=== PATIENT | male | born 1950 | race Caucasian/White ===

== ENCOUNTER 2023-10-03 10:48 | Outpatient (CLI) | payer OTHER, SELFPAY ==
--- NOTE | 2023-10-03 10:15 | DI.RAD_ITS ---
Exam(s) XR HIP LT AP LAT ONLY EXAM: XR HIP LT AP LAT ONLY INDICATION: S/P ORIF LEFT FEMUR IMN. COMPARISON: CR XR LEFT FEMUR from 08/07/2023 DX X-RAY Hip, 1 Views, Left from 09/03/2023 TECHNIQUE: 2D digital imaging was performed. Two views. FINDINGS: There has been no change in the hardware in the proximal femur. There has been healing at the proxim al femoral fracture. Moderate degenerative changes noted of the left hip. DATA REPOSITORY: RADIATION DOSE DELIVERED:
== END 2023-10-03 10:49 | disposition home or self-care (01) ==
LOC: DIORS 10:48
PROVIDERS: PCP Family Medicine; Visit Provider Student in an Organized Health Care Education/Training Program
DX: Z98.890 Other specified postprocedural states (principal); S72.044D Nondisplaced fracture of base of neck of right femur, subsequent encounter for closed fracture with routine healing; X58.XXXD Exposure to other specified factors, subsequent encounter
CPT/HCPCS: 73502

== ENCOUNTER 2023-12-01 11:37 | Outpatient (CLI) | payer OTHER, SELFPAY ==
--- NOTE | 2023-12-01 11:02 | DI.RAD_ITS ---
Exam(s) XR KNEE LT 3V AP,LAT,TAVIA EXAM: XR KNEE LT 3V AP,LAT,TAVIA CLINICAL HISTORY: L knee pain. TECHNIQUE: 2D digital imaging was performed of the left knee. Three images were obtained. AP, late ral and PA tunnel views were obtained. COMPARISON: CR XR LEFT FEMUR from 08/07/2023 FINDINGS: BONES: No acute fracture is present. No bony destructive lesion is seen. JOINTS: There is marked narrowing of the medial femoral tibial joint. There osteophytes in the bloom lofemoral joint and the medial femoral tibial joint. Enthesophytes are seen at the anterior patella. There density seen posteriorly in the knee which may represent loose bodies. There is a small join t effusion. SOFT TISSUE: Normal. IMPRESSION: Osteoarthritis of the left knee. DATA REPOSITORY: RADIATION DOSE DELIVERED:
--- NOTE | 2023-12-01 11:02 | DI.RAD_ITS ---
Exam(s) XR HIP LT AP LAT ONLY EXAM: XR HIP LT AP LAT ONLY CLINICAL HISTORY: ORIF L hip. TECHNIQUE: 2D digital imaging was performed. Two images were obtained. AP and lateral views were ob tained. COMPARISON: CR XR PELVIS from 08/07/2023 CR XR HIP LT AP LAT ONLY from 10/03/2023 FINDINGS: BONES: There are stable post operative changes present. No new fracture or dislocation. There has be en no change in alignment of the proximal left humeral fracture which shows continued healing. JOINTS: The joint spaces are well maintained. There are degenerative changes seen in the left hip. SOFT TISSUE: Normal. IMPRESSION: Stable postoperative changes. DATA REPOSITORY: RADIATION DOSE DELIVERED:
== END 2023-12-01 11:38 | disposition home or self-care (01) ==
LOC: DIORS 11:37
PROVIDERS: PCP Family Medicine; Visit Provider Physician Assistant
DX: M17.12 Unilateral primary osteoarthritis, left knee
CPT/HCPCS: 73562; 73502

== ENCOUNTER 2025-03-20 22:15 | Emergency (ER) | payer MEDICARE, SELFPAY ==
[2025-03-20] VITALS (17 sets, daily range): BP systolic 136–147; BP diastolic 62–75; PULSE 74–128; RESP 9–20; TEMP 37; O2SAT 91–98
--- NOTE | 2025-03-20 21:45 | RT.EKG_ITS ---
APPROVED REPORT Exam: Resting ECG Reason for Exam: Stemi Patient Location: E HR:80 bpm ECG Measurements Heart Rate 80 AXIS DE 195 P 0 QRSd 97 QRS 43 QT 395 T 64 QTc 457 Conclusion Sinus rhythm...normal P axis, V-rate 60- 99 Probable anteroseptal infarct, recent...Q, ST>0.15mV, T neg, V1-V2 Physician: Elevation in V1/V2, no depressions, concern for STEMI
--- NOTE | 2025-03-20 22:15 | DI.RAD_ITS ---
Exam(s) XR PORTABLE CHEST AP EXAM: XR PORTABLE CHEST AP CLINICAL HISTORY: chest pain TECHNIQUE: 2D digital imaging was performed of the chest. One image was obtained. An AP view was ob tained. COMPARISON: No exams were available for comparison FINDINGS: There is overlying monitoring equipment present. MEDIASTINUM: Normal. HEART: Normal. PULMONARY VASCULATURE: Normal. LUNGS: Clear. PLEURAL SPACE: No pleural effusion or pneumothorax. BONE:Within normal limits for the patient's age. OTHER FINDINGS:Normal. IMPRESSION: No acute pulmonary findings. DATA REPOSITORY: RADIATION DOSE DELIVERED:
[2025-03-20 22:29] LABS: Abs Immature Grans 0.04 10^3/uL (0.0-0.06); Absolute Basophil Count 0.05 10^3/uL (0.0-0.2); Absolute Eosinophil Count 0.28 10^3/uL (0.0-0.7); Absolute Lymphocyte Count 1.76 10^3/uL (1.2-3.4); Absolute Monocyte Count 0.84 10^3/uL (0.1-0.8); Absolute Neutrophil Count 7.05 10^3/uL (1.2-6.7); Basophils % 0.5 %; Eosinophils % 2.8 %; HCT 39.6 % (40.0-50.0); HGB 12.7 g/dL (13.5-17.5); Immature Grans % 0.4 %; Lymphocytes % 17.6 %; MCH 28.4 pg (27.0-33.0); MCHC 32.1 % (32.0-36.0); MCV 89 fL (80-95); MPV 9.4 fL (8.0-11.0); Monocytes % 8.4 %; Neutrophils % 70.3 %; Platelet Count 283 10^3/uL (130-400); RBC 4.47 10^6/uL (4.36-5.78); RDW 13.9 % (11.8-14.1); WBC 10.02 10^3/uL (4.4-10.8)
--- NOTE | 2025-03-20 22:30 | DI.CT_ITS ---
Exam(s) CT THORAX CTA EXAM: CT THORAX CTA CLINICAL HISTORY: stemi, eval for dissection and vent wall anyurism. TECHNIQUE: Imaging Protocol: Axial CT angiography was performed with multi-slice acquisition and mu lti-planar and/or 3D reconstructions. Lung Computer Aided Detection (CAD) was utilized. CONTRAST MATERIAL: Intravenous: Omnipaque 350 contrast volume:80 mL COMPARISON: No exams were available for comparison FINDINGS: Tracheobronchial tree: Patent where visualized. No bronchiectasis. Pulmonary parenchyma: No consolidation or dominant measurable mass. No architectural distortion. Mild atelectatic changes are seen in the lung bases. Pulmonary Arteries: No evidence of filling defect to suggest pulmonary emboli. Mediastinum and Seble: No dominant adenopathy or fluid collection. The esophagus is unremarkable. Visualized thyroid gland: Unremarkable. Pleura: No effusion or pneumothorax. Heart: The heart is not dilated. Three vessel coronary artery calcification is present. No pericardi al effusion. Aorta: Thoracic aorta non-dilated. No evidence of dissection. Upper abdomen: Unremarkable. Soft tissues: There is bilateral gynecomastia. Bones: Within normal limits for the patient's age. IMPRESSION: 1. No evidence of pulmonary embolism, thoracic aortic dissection or aneurysm. 2. No acute pulmonary process. 3. The preliminary [facility] report was reviewed. RADIATION DOSE DELIVERED: 244.92mGy.cm Total DLP 244.92mGy.cm Total DLP DATA REPOSITORY: All CT scans at this facility are submitted to the National Radiology Data Registry (NRDR) Dose Index Registry (DIR) with the [employer] (ACR). RADIATION OPTIMIZATION: All CT scans at this facility use at least one of these dose optimization te chniques: automated exposure control; mA and/or kV adjustment per patient size (includes targeted exa ms where dose is matched to clinical indication); or iterative reconstruction.
[2025-03-20 22:45] LABS: PTT Activated 26.3 sec (20.6-30.2); Prothrombin Time 9.9 sec (9.1-11.1)
--- NOTE | 2025-03-20 22:50 | W.ED.GENAD ---
Discharge Plan Disposition Patient Disposition: Transfer-Acute Inpatient Care Specific Acute Inpt Facility: [facility] Condition: Critical Discharge Details Clinical Impression: Chest pain, ST elevation KS (STEMI) Primary Care Provider: Alex Warner ED Provider: Sam Leo Home Meds and New Rx's Prescriptions: No Action (DME) crutch/walker spikes See Rx Instructions .Route .MEDSUPPLY Qty: 1 0RF Rx Instructions: As directed HPI General Date/Time Provider Initiated Documentation: 03/20/25 22:38. HPI Narrative: 74-year-old male with a past medical history of osteoarthritis in his knee, previous distant hip fracture, presents today for evaluation of chest pain. Patient states that 2 days ago he developed mild chest achiness, which was intermittent and continued for around 48 hours until this evening around 5 to 6 PM where he had a sudden onset of severe chest heaviness and achiness that occurred while he was closing a window. He denies any falls or trauma. Pain became severe and was rated 10 out of 10. EMS was contacted about 2 to 3 hours later, when they arrived EKG was performed and it showed a combination of bigeminy, and ST elevation. He was given 325 aspirin, 3 nitroglycerin, supplemental oxygen for support, 500 cc normal saline bolus, and 50 of fentanyl. This brought his pain down from a 10 out of 10 to a 3 out of 10. He was brought to the ER for further assessment. He denies any previous cardiac history. He states in the past he was hypertensive but after he got his hip fixed the hypertension went away. He denies history of high cholesterol or diabetes. He denies smoking history. He believes he may have a family history of cardiac disease. No other complaints at this time. He denies recent exertional symptoms over the last week. No other complaints at this time. Related Data Home Medications ?Medication ?Instructions ?Recorded ?Confirmed crutch/walker spikes #1 ea 10/03/23 10/25/24 Previous Rx's ?Medication ?Instructions ?Recorded crutch/walker spikes #1 ea 10/03/23 Allergies Allergy/AdvReac Type Severity Reaction Status Date / Time No Known Allergies Allergy Verified 10/25/24 10:54 Exam Narrative Exam Narrative: 1.Const: Well-nourished, Well-developed, appearing stated age 2.Eyes: PERRL, no conjunctival injection, and symmetrical lids. 3.ENT: Atraumatic external nose and ears. Moist MM. Neck: Symmetric, trachea midline, No thyromegaly. 4.CVS: +S1/S2, Peripheral pulses 2+ and equal in all extremities. Brisk capillary refill in all extremities. Radial pulse +2 bilaterally. 5.RESP: Unlabored respiratory effort. Clear to auscultation bilaterally. No wheezes rales or rhonchi 6.GI: Soft, Nontender/Nondistended, No hepatosplenomegaly. No guarding or rebound. 7.MSK: Normocephalic/Atraumatic, Extremities w/o deformity or ttp No cyanosis or clubbing, Normal movement of all extremities 8.Skin: Warm, Dry. No rashes or lesions. 9.Neuro: correctional medicine physician II-XII grossly intact. Sensation grossly intact, no focal neurologic deficits. 10.Psych: (AAO) x3. Appropriate mood and affect Course Vital Signs Vital signs: Vital Signs Pulse Oximetry 96 03/20/25 22:25 Pulse Oximetry 96 03/20/25 22:25 Oxygen Delivery Method Nasal Cannula 03/20/25 22:25 Oxygen Flow Rate 4 03/20/25 22:25 Lab/Test Results Lab/Test Results: Laboratory Tests Range/Units 03/20/25 22:20 WBC (4.4-10.8) 10^3/uL 10.02 RBC (4.36-5.78) 10^6/uL 4.47 Hgb (13.5-17.5) g/dL 12.7 L Hct (40.0-50.0) % 39.6 L MCV (80-95) fL 89 MCH (27.0-33.0) pg 28.4 MCHC (32.0-36.0) % 32.1 RDW (11.8-14.1) % 13.9 Plt Count (130-400) 10^3/uL 283 MPV (8.0-11.0) fL 9.4 Immature Gran % % 0.4 Neutrophils % % 70.3 Lymphocytes % % 17.6 Monocytes % % 8.4 Eosinophils % % 2.8 Basophils % % 0.5 Nucleated RBC % (0.0-0.3) % 0.0 Absolute Neutrophils (1.2-6.7) 10^3/uL 7.05 H Absolute Lymphocytes (1.2-3.4) 10^3/uL 1.76 Absolute Monocytes (0.1-0.8) 10^3/uL 0.84 H Absolute Eosinophils (0.0-0.7) 10^3/uL 0.28 Absolute Basophils (0.0-0.2) 10^3/uL 0.05 PT (9.1-11.1) sec 9.9 INR (0.9-1.1) 1.0 APTT (20.6-30.2) sec 26.3 Medical Decision Making 74-year-old male with a past medical history of osteoarthritis in his knee, previous distant hip fracture, presents today for evaluation of chest pain. Patient states that 2 days ago he developed mild chest achiness, which was intermittent and continued for around 48 hours until this evening around 5 to 6 PM where he had a sudden onset of severe chest heaviness and achiness that occurred while he was closing a window. He denies any falls or trauma. Pain became severe and was rated 10 out of 10. EMS was contacted about 2 to 3 hours later, when they arrived EKG was performed and it showed a combination of bigeminy, and ST elevation. He was given 325 aspirin, 3 nitroglycerin, supplemental oxygen for support, 500 cc normal saline bolus, and 50 of fentanyl. This brought his pain down from a 10 out of 10 to a 3 out of 10. He was brought to the ER for further assessment. He denies any previous cardiac history. He states in the past he was hypertensive but after he got his hip fixed the hypertension went away. He denies history of high cholesterol or diabetes. He denies smoking history. He believes he may have a family history of cardiac disease. No other complaints at this time. He denies recent exertional symptoms over the last week. No other complaints at this time. Exam demonstrates a stable male, blood pressure is in the 130s systolic, heart rate in the 70s, O2 94% on 2 L supplemental. Afebrile. Radial pulses +2 bilaterally. Lungs are clear. Bedside echo shows an atypical component near the apex of the heart in the left ventricle. Uncertain if this represents an aneurysm or atypical vascular/flow component. No evidence of tamponade, or large pericardial effusion. EKG shows evidence of ST elevation in V1 and V2, but no significant reciprocal depressions however with such an anterior STEMI I would suspect that the depressions would be found on posterior EKG. With the patient's chest pain, age and risk factors I do feel that symptoms represent STEMI. However due to the atypical echo finding, the 48-hour component of his symptomatology, and the slightly atypical component of the EKG we we will consult with cardiology for discussion of TNK administration. 10:[address] Delatorre of [facility] cardiology. He to feels that the EKG is slightly atypical in nature in conjunction with the history. He would like to discuss the case and EKG findings with his web machine tender. In the meantime we will heparinize, started on nitro, and continue to monitor closely. We will get CTA for further assessment of cardiac ventricles. 11:[address] [facility] cardiology, at this time with after discussing with the web machine tender, they have decided to hold off on TNK for the meantime. They do not feel that his EKG meets STEMI criteria and for TNK administration. We will give 600 of Plavix. Patient will be transferred to [facility] via [facility] for definitive cath intervention. Patient remains hemodynamically stable at this time. Pending CT results. I have extensively reviewed the treatment plan with the patient. I have addressed all patient concerns at this time. I have also discussed the plan with the admitting physician and they agree with the current assessment and plan and have agreed to assume responsibility for the patient. All parties demonstrate verbal understanding and agreement with our assessment and plan at this time. The documentation in this chart was dictated using [employer] dictation software. Please excuse any dictation errors. 11:30 PM Daughter and has arrived, as well as dart has arrived. Patient will be taken for definitive management. At time of transfer the patient was reassessed and continued to demonstrate No signs of acute respiratory distress requiring intubation, hemodynamic instability requiring pressor support, or rapidly declining mental status. FINDINGS: Lungs: Unremarkable. No consolidation. Pleural spaces: Unremarkable. No pleural effusion. No pneumothorax. Heart/Mediastinum: Unremarkable. No cardiomegaly. Bones/joints: Unremarkable. IMPRESSION: No acute findings. Thank you for allowing us to participate in the care of your patient. Dictated and Authenticated by: Christiano Chapa MD 03/20/2025 11:40 PM Eastern Time ([place] & [place]) FINDINGS: Pulmonary arteries: No embolus is noted within the main pulmonary artery, right or left pulmonary artery, or lobar branches. Segmental and subsegmental branches cannot be assessed secondary to contrast timing focused on the aorta. Aorta: See Pulmonary arteries finding. Lungs: Unremarkable. No consolidation. No masses. Pleural spaces: Unremarkable. No pneumothorax. No pleural effusion. Heart: Unremarkable. No cardiomegaly. No pericardial effusion. Lymph nodes: Unremarkable. No enlarged lymph nodes. Bones/joints: Unremarkable. No acute fracture. Soft tissues: Unremarkable. IMPRESSION: 1. No evidence of thoracic aortic aneurysm or dissection. 2. No embolus is noted within the main pulmonary artery, right or left pulmonary artery, or lobar branches. Segmental and subsegmental branches cannot be assessed secondary to technical factors. Thank you for allowing us to participate in the care of your patient. Dictated and Authenticated by: Christiano Chapa MD 03/20/2025 11:59 PM Eastern Time ([place] & [place]) Quality:SDOH Health Related Social Needs: No Data to Display Critical Care Time Critical Care Time Critical Care Time: Yes Total Critical Care Time: 45 Attestation: Upon my evaluation, this patient had a high probability of imminent or life-threatening deterioration, which required my direct attention, intervention, and personal management. I have personally provided 45 minutes of critical care time exclusive of time spent on separately billable procedures. Time includes review of laboratory data, radiology results, discussion with consultants, and monitoring for potential decompensation. Interventions were performed as documented. PFSH All Active Problems ST elevation KS (STEMI) (Acute) Chest pain (Acute) Trochanteric bursitis of left hip (Acute) Osteoarthritis of left knee (Acute) Steroid injection: 12/01/2023 Hip fracture, left (Acute 08/07/23) S/P ORIF IMN: 08/09/2023 in [facility] Social History Smoking/Tobacco Use Status: Never Smoking risk assessment performed?: Yes Alcohol Intake: former Substance use type: does not use Housing: house Current gender identity: male Do you feel safe at home: Yes Do you feel safe in your relationship?: Yes POCUS Exam (ED) Limited Cardiac Exam DATE OF EXAM: 03/20/25 TIME OF EXAM: 23:04 PROVIDER THAT PERFORMED THE STUDY: Sam Leo IS THIS A REPEAT EXAM DURING THIS ENCOUNTER: no REASON FOR EXAM: Chest pain VISUALIZED STRUCTURES: Left atrium, Left ventricle, Right ventricle, Aortic valve and Interventricular septum VIEW OBTAINED: Parasternal long-axis and Parasternal short-axis PERTINENT FINDINGS/IMPRESSION: Other (Atypical finding near the apex of the heart, concern for flow or ventricular wall abnormality.); No pericardial effusion Exam complete
[2025-03-20] MEDS: Omnipaque 350 MG/ML 100 ML BTL IJ (22:53)
[2025-03-20] MEDS: Normal Saline - Diluent 50 ML VIAL IJ (22:54)
[2025-03-20 23:01] LABS: ALT 29 U/L (16-63); AST 38 U/L (15-37); Albumin 2.8 g/dL (3.4-5.0); Alkaline Phosphatase 82 U/L (46-116); Anion Gap 9.7 mmol/L (3-11); BUN 18 mg/dL (7-18); Bilirubin, Total 0.3 mg/dL (0.2-1.0); CO2 25.3 mmol/L (21.0-32.0); CREATININE 1.2 mg/dL (0.70-1.30); Calcium 8.5 mg/dL (8.5-10.1); Chloride 103 mmol/L (98-107); Estimated GFR 62.67 (mL/min/1.73m2); Glucose 235 mg/dL (74-106); Lipase 43 U/L (<78); NT-proBNP 49 pg/mL (<300); Potassium 3.9 mmol/L (3.5-5.1); Sodium 138 mmol/L (136-145); TSH (W/Ref FT4) 9.63 uIU/mL (0.36-3.74); Total Protein 7.9 g/dL (6.4-8.2)
[2025-03-20 23:03] LABS: Troponin I 616 ng/L (<or=76)
[2025-03-20] MEDS: Heparin in 0.45% NaCl 25,000 UNIT/250 ML BAG 10 UNIT IVINF (23:08)
[2025-03-20] MEDS: Calcium Gluconate 4.65 MEQ/10 ML VIAL 4.65 MG IVP (23:09)
[2025-03-20] MEDS: Clopidogrel 300 MG TAB 600 MG PO (23:12)
[2025-03-20 23:20] LABS: FREE T4 0.85 ng/dL (0.76-1.46)
[2025-03-20] MEDS: nitroGLYcerin in D5W 50 MG/250 ML BTL 6 MG IV (23:21)
--- NOTE | 2025-03-20 23:40 | DI.[facility]_ITS ---
PROCEDURE INFORMATION: Exam: XR Chest Exam date and time: 03/20/2025 10:34 PM Age: 74 years old Clinical indication: Other: Unspecified; Chest pain - PT came in to ED as stemi TECHNIQUE: Imaging protocol: Radiologic exam of the chest. Views: 1 view. COMPARISON: CT THORAX CTA 03/20/2025 10:33 PM FINDINGS: Lungs: Unremarkable. No consolidation. Pleural spaces: Unremarkable. No pleural effusion. No pneumothorax. Heart/Mediastinum: Unremarkable. No cardiomegaly. Bones/joints: Unremarkable. IMPRESSION: No acute findings. Dictated and Authenticated by: Christiano Chapa MD. Orderin Felipa Vargas MD
--- NOTE | 2025-03-20 23:59 | DI.[facility]AD_ITS ---
PROCEDURE INFORMATION: Exam: CTA Chest With Contrast Exam date and time: 03/20/2025 10:33 PM Age: 74 years old Clinical indication: Other: Chest pain; Stemi, eval for dissection and vent wall anyurism TECHNIQUE: Imaging protocol: Computed tomographic angiography of the chest with contrast. Exam focused on the arteries. 3D rendering (Not supervised by radiologist): MIP and/or 3D reconstructed images were created by the technologist. Radiation optimization: All CT scans at this facility use at least one of these dose optimization techniques: automated exposure control; mA and/or kV adjustment per patient size (includes targeted exams where dose is matched to clinical indication); or iterative reconstruction. Contrast material: OMNIPAQUE 350; Contrast volume: 80 ml; Contrast route: INTRAVENOUS (IV); COMPARISON: CR XR PORTABLE CHEST AP 03/20/2025 10:34 PM FINDINGS: Pulmonary arteries: No embolus is noted within the main pulmonary artery, right or left pulmonary artery, or lobar branches. Segmental and subsegmental branches cannot be assessed secondary to contrast timing focused on the aorta. Aorta: See Pulmonary arteries finding. Lungs: Unremarkable. No consolidation. No masses. Pleural spaces: Unremarkable. No pneumothorax. No pleural effusion. Heart: Unremarkable. No cardiomegaly. No pericardial effusion. Lymph nodes: Unremarkable. No enlarged lymph nodes. Bones/joints: Unremarkable. No acute fracture. Soft tissues: Unremarkable. IMPRESSION: 1. No evidence of thoracic aortic aneurysm or dissection. 2. No embolus is noted within the main pulmonary artery, right or left pulmonary artery, or lobar branches. Segmental and subsegmental branches cannot be assessed secondary to technical factors. Dictated and Authenticated by: Christiano Chapa MD. Orderin Felipa Vargas MD
[2025-03-21 00:06] VITALS: RESP 16
== END 2025-03-20 23:43 | disposition short-term general hospital (02) ==
PROVIDERS: Emergency Provider Student in an Organized Health Care Education/Training Program; PCP Family Medicine
DX: I21.29 ST elevation (STEMI) myocardial infarction involving other sites; R07.9 Chest pain, unspecified
CPT/HCPCS: 71275; 80053; 83690; 93005; 93308; 96365; 96367; 96375; 99291; 71045; 83880; 84439; 84443; 84484; 85025; 85610; 85730; 93010; J0612; J1644; J2305; J3490

== ENCOUNTER 2025-04-19 07:54 | Outpatient (CLI) | payer MEDICARE, SELFPAY ==
--- NOTE | 2025-04-19 07:45 | RT.EKG_ITS ---
APPROVED REPORT Exam: Resting ECG Reason for Exam: CT Patient Location: O HR:94 bpm ECG Measurements Heart Rate 94 AXIS CA 235 P 11 QRSd 88 QRS 36 QT 350 T 93 QTc 438 Conclusion Sinus rhythm...normal P axis, V-rate 50- 99 Prolonged CA interval...CA >215, V-rate 91-120 Probable left atrial enlargement...P >50mS, <-0.10mV V1 Anteroseptal infarct, age indeterminate...Q >35mS, T neg, V1-V2 Baseline wander in lead(s) V3,V4,V5
== END 2025-04-19 07:55 | disposition home or self-care (01) ==
LOC: DI.CARD 07:54
PROVIDERS: PCP Family Medicine; Visit Provider Internal Medicine Cardiovascular Disease
DX: I21.3 ST elevation (STEMI) myocardial infarction of unspecified site (principal); I51.7 Cardiomegaly
CPT/HCPCS: 93010

== ENCOUNTER → 2025-04-19 13:34 | Outpatient (BNVA) | payer MEDICARE, SELFPAY | PROVIDERS: PCP Family Medicine; Referring Provider Family Medicine; Visit Provider Internal Medicine Cardiovascular Disease | DX: I21.4 Non-ST elevation (NSTEMI) myocardial infarction (principal); I25.10 Atherosclerotic heart disease of native coronary artery without angina pectoris | CPT/HCPCS: 99214; 93005 ==

== ENCOUNTER 2025-05-18 10:00 | Outpatient (RCR) | payer MEDICARE, SELFPAY ==
--- NOTE | 2025-05-02 11:00 | RT.EKG_ITS ---
APPROVED REPORT Exam: Resting ECG Reason for Exam: Baseline Patient Location: O HR:84 bpm ECG Measurements Heart Rate 84 AXIS WI 262 P 33 QRSd 89 QRS 43 QT 347 T 72 QTc 411 Conclusion Sinus rhythm...normal P axis, V-rate 50- 99 Prolonged WI interval...WI >220, V-rate 50- 90 Anteroseptal infarct, age indeterminate...Q >35mS, T neg, V1-V2
== END 2025-05-19 23:59 | disposition home or self-care (01) ==
LOC: CR 10:00
PROVIDERS: PCP Family Medicine; Visit Provider Internal Medicine Cardiovascular Disease
DX: I21.4 Non-ST elevation (NSTEMI) myocardial infarction (principal); I21.02 ST elevation (STEMI) myocardial infarction involving left anterior descending coronary artery; Z51.89 Encounter for other specified aftercare
CPT/HCPCS: S9472

== ENCOUNTER 2025-06-15 10:00 | Outpatient (RCR) | payer MEDICARE, SELFPAY | END 2025-06-19 23:59 | disposition home or self-care (01) | LOC: CR 10:00 | PROVIDERS: PCP Family Medicine; Visit Provider Internal Medicine Cardiovascular Disease | DX: I21.4 Non-ST elevation (NSTEMI) myocardial infarction (principal); I10 Essential (primary) hypertension; E11.9 Type 2 diabetes mellitus without complications | CPT/HCPCS: S9472 ==

== ENCOUNTER 2025-06-15 11:05 | Emergency (ER) | payer MEDICARE, SELFPAY ==
[2025-06-15] VITALS (47 sets, daily range): BP systolic 95–153; BP diastolic 44–69; PULSE 64–87; RESP 12–25; TEMP 36.6–36.7; O2SAT 93–100
--- NOTE | 2025-06-15 11:00 | RT.EKG_ITS ---
APPROVED REPORT Exam: Resting ECG Reason for Exam: Cardiac Arrest Patient Location: E HR:78 bpm ECG Measurements Heart Rate 78 AXIS TX 236 P 26 QRSd 85 QRS 48 QT 384 T 55 QTc 437 Conclusion Sinus rhythm...normal P axis, V-rate 60- 99 Prolonged TX interval...TX >220, V-rate 50- 90 Low voltage, precordial leads...precordial leads <1.0mV Consider anteroseptal infarct...Q >30mS, dimin R, V1-V2 Sinus rhythm with first degree heart block. Old anteroseptal infarct. When compared to 05/02/25 no significant changes. WD
--- NOTE | 2025-06-15 11:00 | DI.RAD_ITS ---
Exam(s) XR PORTABLE CHEST AP EXAM: XR PORTABLE CHEST AP CLINICAL HISTORY: s/p CPR TECHNIQUE: 2D digital imaging was performed of the chest. One image was obtained. An AP view was obtained. COMPARISON: CR,XR XR PORTABLE CHEST AP from 03/20/2025 FINDINGS: The exam is limited by overlying monitoring equipment. MEDIASTINUM: Normal. HEART: Normal. PULMONARY VASCULATURE: Normal. LUNGS: Clear. PLEURAL SPACE: No pleural effusion or pneumothorax. BONE:Within normal limits for the patient's age. OTHER FINDINGS:Normal. IMPRESSION: No acute pulmonary findings. DATA REPOSITORY: RADIATION DOSE DELIVERED:
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
[2025-06-15 11:22] LABS: HCT 40.5 % (40.0-50.0); HGB 13.1 g/dL (13.5-17.5); MCH 28.9 pg (27.0-33.0); MCHC 32.3 % (32.0-36.0); MCV 89 fL (80-95); MPV 9.8 fL (8.0-11.0); Platelet Count 294 10^3/uL (130-400); RBC 4.53 10^6/uL (4.36-5.78); RDW 13.7 % (11.8-14.1); RDW-SD 45.1 fL; WBC 11.24 10^3/uL (4.4-10.8)
[2025-06-15 11:38] LABS: INR 1.0 (0.9-1.1); PTT Activated 24.5 sec (20.6-30.2); Prothrombin Time 10.1 sec (9.1-11.1)
[2025-06-15 12:29] LABS: Troponin I 10 ng/L (<or=76)
[2025-06-15 14:52] LABS: Troponin I 11 ng/L (<or=76)
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
== END 2025-06-15 15:40 | disposition left against medical advice (07) ==
PROVIDERS: Emergency Provider Emergency Medicine Emergency Medical Services; PCP Family Medicine
DX: R55 Syncope and collapse (principal); Z53.20 Procedure and treatment not carried out because of patient's decision for unspecified reasons; Z86.79 Personal history of other diseases of the circulatory system
CPT/HCPCS: 36415; 36416; 82962; 99291; 85027; 93005; 71045; 84484; 85610; 85730; 93010

== ENCOUNTER 2025-06-23 10:29 | Outpatient (CLI) | payer MEDICARE, SELFPAY | END 2025-06-23 10:30 | disposition home or self-care (01) | PROVIDERS: PCP Family Medicine; Visit Provider Family Medicine | DX: I21.4 Non-ST elevation (NSTEMI) myocardial infarction (principal) | CPT/HCPCS: 93246 ==

== ENCOUNTER 2025-06-27 09:02 | Outpatient (CLI) | payer MEDICARE, SELFPAY ==
--- NOTE | 2025-06-27 06:45 | DI.US_ITS ---
APPROVED REPORT EXAM: Comprehensive 2D, Doppler, and color-flow Echocardiogram Patient Location: Out-Patient [employer] Operator: Favian Ansari RDCS (AE) Indications: Recheck LV function, CAD Other Information Study Quality: Adequate. Technically limited study due to body habitus. Conclusion Normal left ventricular wall thickness and chamber size. Ejection fraction is 55%. Wall motion appears normal Normal right ventricular size and function Both atria are normal in size There is no structural or hemodynamically significant valvular disease Wall motion Left Ventricle The left ventricle is normal size. The left ventricular systolic function is normal. The left ventricular ejection fraction is within the normal range. There is normal left ventricular wall thickness. No segmental wall motion abnormalities There is no ventricular septal defect visualized. LVEF is 55%. Right Ventricle The right ventricle is normal size. The right ventricular systolic function is normal. Atria The left atrium size is normal. Right atrium is mildly dilated. The interatrial septum is intact with no evidence for an atrial septal defect. Aortic Valve The aortic valve is normal in structure. Aortic valve is trileaflet. There is no aortic valvular stenosis. No aortic regurgitation is present. Mitral Valve The mitral valve is normal in structure. No evidence of mitral valve stenosis. Trace mitral regurgitation. Tricuspid Valve The tricuspid valve is normal in structure. There is no tricuspid valve stenosis. Trace tricuspid regurgitation. Pulmonic Valve The pulmonary valve is normal in structure. There is no pulmonic valvular stenosis. There is no pulmonic valvular regurgitation. Great Vessels The ascending aorta is normal in size. Aortic arch is normal in caliber. IVC is normal in size and collapses >50% with inspiration. Pericardium There is no pericardial effusion. 2D Dimensions IVSD d PLAX 1.05 cm M: 0.6-1.2 Ao Root d 2.95 cm M: 3.1 - 3.7 LVPW d PLAX 1.08 cm M: 0.6 - 1.2 Ao Asc Diam d 3.37 cm M: 2.6 - 3.4 LVID d PLAX 4.41 cm M: 4.2 - 5.8 LVDs 3.17 cm M: 2.5 - 4.0 LV EF Teichholz 54.3 % FS 27.96 % LV EDV (Teich) 88.0 mL LV ESV (Teich) 40.2 mL Stroke Vol Index (Teich) 19.28 M-Mode TAPSE 1.75 cm (M/F) >1.7 Auto EF LV EDV A4C 87.4 mL LV EDV A2C 104.3 mL LV EDV BP 95.5 mL LV ESV A4C 42.7 mL LV ESV A2C 48.5 mL LV ESV BP 45.6 mL LVEF(%) A4C 51.1 % LVEF(%) A2C 53.5 % LVEF(%) BP 52.3 % LV SV A4C 44.7 ml LV SV A2C 55.8 ml LV SV BP 49.9 ml LV CO A4C 3.4 L/min LV CO A2C 4.2 L/min LV CO BP 3.8 L/min HR A4C 75.64 BPM HR A2C 75.79 BPM LV EDV Index (BP) LA Volume LA Length A4C 4.4 cm LA Length A2C 5.2 cm LA Area A4C s 14.66 cm2 LA Area A2C s 12.89 cm2 LA Vol A4C A-L 41.26 mL LA Vol A2C A-L 27.22 mL LA Vol Biplane A-L 36.3 mL LA Vol/BSA A4C A-L LA Vol/BSA A2C A-L LA Vol/BSA BP A-L 14.6 mL/m2 LA Vol A4C MOD 37.5 mL LA Vol A2C MOD 25.1 mL LA Vol BP MOD 32.4 mL RA Volume RA Area A4C 11.4 cm2 RA ESV A4C (A-L) 26.6mL RA Vol/BSA A4C A-L RA Length A4C 4.1 cm RA ESV A4C (MOD) 25.2mL LV Diastology MV E' medial 0.077 (>0.07 m/s) MV E Vmax 0.47 (0.4-1.3 m/s) MV E/E' MED 6.11 (<14) MV A Vmax 0.70 (0.4-1.3 m/s) MV E' lateral 0.070 (>0.1 m/s) E/A Ratio 0.7 MV E/E' LAT 6.68 (<14) MV E' Average 0.073 m/s MV E/E'(average) 6.38 Aortic Valve AoV Vmax 1.09 m/s LVOT Vmax 0.84 m/s AoV Peak Grad 4.8 mmHg LVOT Peak Grad 2.8 mmHg AoV Area (Vmax) 2.99 cm2 LVOT VTI 0.193 m AoV VTI 0.243 m LVOT Mean Grad 1.7 mmHg AoV Mean Brett. 0.81 m/s LVOT SV 74.80 mL AoV Mean Grad 2.9 mmHg LVOT Diam s 2.20 cm AoV Area (VTI) 3.08 cm2 AV Regurg Peak Gr. 4.75 mmHg Velocity Ratio 0.77 Mitral Valve MV DT 150 (160-240 msec) Pulmonary Valve PV Vmax 1.37 (0.5-1.5 m/s) RVOT Vmax 0.85 m/s PV Peak Grad 7.5 mmHg RVOT Peak Gr. 2.9 mmHg PV Mean Brett 0.89 m/s RVOT VTI 0.161 m PV Mean Grad 3.7 mmHg RVOT Mean Gr. 1.6 mmHg
== END 2025-06-27 09:22 ==
LOC: DI 09:03
PROVIDERS: PCP Family Medicine; Visit Provider Internal Medicine Cardiovascular Disease
DX: I25.10 Atherosclerotic heart disease of native coronary artery without angina pectoris (principal)
CPT/HCPCS: 93306

== ENCOUNTER 2025-07-19 07:09 | Outpatient (CLI) | payer MEDICARE, SELFPAY ==
--- NOTE | 2025-07-19 09:01 | W.CARDEVENT ---
Date of service: 07/19/25 Time of Service: 09:01 Cardiac Event Recorder Referring Provider:: Alex Warner Indications:: Cardiac arrhythmia Cardiac Event Note: This is a cardiac event monitor. Patient was monitored for 5 days and 5 hours Predominant rhythm was sinus with an average heart rate of 65. Minimum was 47, maximum 108 There were very rare isolated atrial and ventricular ectopic beats. There was 1 slow ventricular triplet There was no atrial fibrillation, no high-grade AV block, no pauses greater than 3 seconds. No symptoms were reported
== END 2025-07-19 07:10 | disposition home or self-care (01) ==
LOC: CARDOPNVT 07:09
PROVIDERS: PCP Family Medicine; Visit Provider Internal Medicine Cardiovascular Disease
DX: I49.8 Other specified cardiac arrhythmias (principal); I49.3 Ventricular premature depolarization
CPT/HCPCS: 93248

== ENCOUNTER → 2025-07-28 12:46 | Outpatient (BNVA) | payer MEDICARE, SELFPAY | PROVIDERS: PCP Family Medicine; Referring Provider Family Medicine; Visit Provider Internal Medicine Cardiovascular Disease | DX: I21.4 Non-ST elevation (NSTEMI) myocardial infarction (principal); Z87.81 Personal history of (healed) traumatic fracture | CPT/HCPCS: 99213 ==